=== PATIENT | female | born 1935 | race Caucasian/White ===

== ENCOUNTER 2016-12-23 17:12 | Emergency (ER) | payer OTHER ==
[2013-01-30 10:12] VITALS: BP 132/71; TEMP 97.6
[2016-12-23 17:20] VITALS: BP 143/78; TEMP 99.3; BMI 31.9
--- NOTE | 2016-12-23 17:51 | ED.PDOC ---
General ED Provider: Dr. JAZMIN PURVIS Chief Complaint: Wound Check Stated Complaint: LEFT FOOT GREAT TOE INJURY Time Seen by Physician: 17:29 (HISTORY NEUROPATHYX 13 YEARS CANT FEEL LOWER LEGS ) Mode of Arrival: Walk-In Information Source: Patient Exam Limitations: No limitations Primary Care Provider: SJ LANDIN Nursing and Triage Documentation Reviewed and Agree: Yes (POSSIBLE TRAUMA IN ED FOR WOUND CHECK) Musculoskeletal Complaint Exam - Ankle/Foot Complaint/Exam Location of Injury: Reports: Left, Foot, Toe #1 Mechanism of Injury: Reports: Trauma (IS POSSIBLE SEE PHOTOS) Onset/Duration: PT NOTICED IT WENDSDAY Symptoms Are: Reports: Still present (SEE PHOTOS) Onset of Pain: Reports: Hours Initial Severity: Mild Current Severity: Mild Location: Reports: Discrete (1ST TOE) Character: Reports: Aching Alleviating: Reports: None, Rest Aggravating: Reports: None Able to Bear Weight: Yes Associated Signs and Symptoms: Reports: Swelling, Redness, Bruising (LACERATION 1ST TOE) Gout Risk Factors: Reports: >40 years old Lower Extremity Findings: Present: Swelling, Ecchymosis Review of Systems - Review Of Systems Constitutional: Reports: No symptoms Eyes: Reports: No symptoms Ears, Nose, Mouth, Throat: Reports: No symptoms Respiratory: Reports: No symptoms Cardiac: Reports: No symptoms GI: Reports: No symptoms : Reports: No symptoms Musculoskeletal: Reports: Other (PAIN LEFT 1ST TOE) Skin: Reports: No symptoms Neurological: Reports: No symptoms Endocrine: Reports: No symptoms Hematologic/Lymphatic: Reports: No symptoms All Other Systems: Reviewed and Negative Past Medical History - Past Medical History Previously Healthy: No Endocrine: Reports: DM 2 Cardiovascular: Reports: Hypertension Respiratory: Reports: None Hematological: Reports: Unknown Gastrointestinal: Reports: GERD Genitourinary: Reports: None 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) Musculoskeletal: Reports: Arthritis Cancer: Reports: Unknown Last Menstrual Period: hysterectomy - Surgical History General Surgical History: Reports: Unknown - Family History Family History: Reports: Unknown - Social History Smoking Status: Never smoker Hx Substance Use: No Alcohol Screening: None Physical Exam - Physical Exam Appearance: Well-appearing, No pain distress, Well-nourished Eyes: THEE, EOMI, Conjunctiva clear ENT: Ears normal, Nose normal, Oropharynx normal Respiratory: Airway patent, Breath sounds clear, Breath sounds equal, Respirations nonlabored Cardiovascular: RRR, Pulses normal, No rub, No murmur GI/: Soft, Nontender, No masses, Bowel sounds normal, No Organomegaly Musculoskeletal: Normal strength, ROM intact, No edema, No calf tenderness Skin: Warm, Dry (SKIN TEAR AND BRUSING ON THE 1ST TOE LEFT FOOT) Neurological: Sensation intact, Motor intact, Reflexes intact, Cranial nerves intact, Alert, Oriented Psychiatric: Affect appropriate, Mood appropriate Critical Care Note - Critical Care Note Total Time (mins): 0 Course - Course Orders, Labs, Meds: Orders Category Date Time Status FOOT, LEFT 3 VIEWS Stat RADS 12/23/16 17:48 Ordered Vital Signs: Temp Pulse Resp BP Pulse Ox 12/23/16 17:14 99.3 F 103 H 20 143/78 H 94 L Departure - Departure Time of Disposition: 17:54 (WITH ELISEO AT BEDSIDE DID CHECK THE PULSES OF THE LOWER EXT MANUALY AND WITH KRISTINAPLER ALL PULSES WERE PRESENT STRONG . ELISEO PRESENT) Disposition: HOME SELF-CARE Discharge Problem: Wound Foot abrasion Qualifiers: Encounter type: initial encounter Laterality: left Qualifier Code: (S90.812A) Abrasion, left foot, initial encounter Contusion of toe, left Qualifiers: Encounter type: initial encounter Toe: great toe Damage to nail status: with damage Qualifier Code: (S90.212A) Contusion of left great toe with damage to nail, initial encounter Instructions: Laceration (ED) Condition: Good Pt referred to PMD for follow-up: No Additional Instructions: Please call your Family Physician as soon as possible to schedule a follow-up appointment. Allergies/Adverse Reactions: Allergies Penicillins Adverse Reaction (Verified 12/23/16 17:23) Home Medications: Ambulatory Orders Albuterol Sulfate [Proair Hfa] 4 puff INH QID 01/30/13 Budesonide [Rhinocort Aqua] 32 mcg NS DAILY PRN 01/30/13 Celecoxib [Celebrex] 100 mg PO DAILY 01/30/13 Duloxetine HCl [Cymbalta] 60 mg PO DAILY 01/30/13 Esomeprazole Magnesium [Nexium] 40 mg PO DAILY 01/30/13 Fexofenadine HCl [Marah] 180 mg PO DAILY 01/30/13 Glyburide [Diabeta] 2.5 mg PO 1-2XD 06/12/13 Montelukast Sodium [Singulair] 10 mg PO ONCE 01/30/13 Valsartan [Diovan] 320 mg PO DAILY 01/30/13 Cholecalciferol (Vitamin D3) [Vitamin D3] 1,000 unit PO DAILY 12/23/16 Glucosamine HCl/Chondr Segundo A Na [Osteo Bi-Flex Caplet] 1 each PO BID 12/23/16 Hydrocodone/Acetaminophen [Hydrocodon-Acetaminophen 5-325] 1 each PO Q6HR PRN Sitagliptin Phosphate [Januvia] 50 mg PO DAILY 12/23/16
--- NOTE | 2016-12-23 18:20 | DI ---
EXAM: Left foot, three views, 12/23/2016 HISTORY: Trauma COMPARISON: None. FINDINGS / IMPRESSION: The distal aspect of the second metatarsal is absent. Joint space narrowing at the interphalangeal joint of the great toe. Bony erosion within the base of the distal phalanx. A jagged lucency also traverses the proximal aspect of the distal phalanx of the great toe. This c ould represent acute fracture. Please correlate with physical examination. This is age indetermina te. 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 Joint space narro wing with bulky dorsal osteophyte formation. Multiple sites of articular sclerosis and endplate ero concha.
[2016-12-23] MEDS: LIDOCAINE 1 % AMP 5 ML (SUTURES) IM STA (18:39)
[2016-12-23] MEDS: ROCEPHIN IM STA (18:40)
== END 2016-12-23 19:01 | disposition home or self-care (01) ==
LOC: ED 17:12
DX: S92.402A Displaced unspecified fracture of left great toe, initial encounter for closed fracture (principal); S90.812A Abrasion, left foot, initial encounter
CPT/HCPCS: 96372; 99283

== ENCOUNTER 2016-12-24 15:14 | Outpatient (CLI) ==
[2016-12-23 17:20] VITALS: BMI 31.9
[2016-12-24 15:38] VITALS: BP 120/68; TEMP 98.6
[2016-12-24] MEDS ORDERED: LIDOCAINE 1 % AMP 5 ML (SUTURES) IM STA (15:39)
[2016-12-24] MEDS ORDERED: ROCEPHIN IM STA (15:39)
[2016-12-24] MEDS ORDERED: LIDOCAINE 1 % AMP 5 ML (SUTURES) ONE (15:44)
[2016-12-24] MEDS ORDERED: ROCEPHIN ONE (15:44)
[2016-12-24] MEDS: ROCEPHIN IM SCH (15:59)
[2016-12-25] MEDS ORDERED: LIDOCAINE 1 % AMP 5 ML (SUTURES) IM SCH (09:00)
== END 2016-12-24 15:15 | disposition home or self-care (01) ==
LOC: OPMED 15:14
PROVIDERS: ATTEND Internal Medicine Geriatric Medicine
DX: S92.402B Displaced unspecified fracture of left great toe, initial encounter for open fracture (principal); L03.032 Cellulitis of left toe
CPT/HCPCS: 96372

== ENCOUNTER 2016-12-25 14:50 | Outpatient (CLI) ==
[2016-12-25 15:13] VITALS: BP 132/68; TEMP 98.1
[2016-12-25] MEDS ORDERED: ROCEPHIN ONE (15:22)
[2016-12-25] MEDS ORDERED: LIDOCAINE 1 % AMP 5 ML (SUTURES) ONE (15:26)
[2016-12-25] MEDS: ROCEPHIN IM STA (15:39)
[2016-12-25] MEDS: LIDOCAINE 1 % AMP 5 ML (SUTURES) IM STA (15:40)
[2016-12-25] MEDS: URO-JET MUCOUSMEMB ONE (15:41)
== END 2016-12-25 14:51 | disposition home or self-care (01) ==
LOC: OPMED 14:50
PROVIDERS: ATTEND Internal Medicine Geriatric Medicine
DX: S92.402B Displaced unspecified fracture of left great toe, initial encounter for open fracture (principal); L03.032 Cellulitis of left toe
CPT/HCPCS: 96372

== ENCOUNTER 2018-03-31 13:16 | Outpatient (CLI) ==
[2013-01-30 10:12] VITALS: TEMP 97.6
== END 2018-03-31 13:45 | disposition short-term general hospital (02) ==
LOC: AMBL 13:16
PROVIDERS: ATTEND Internal Medicine
DX: R53.1 Weakness (principal); R50.9 Fever, unspecified; M79.672 Pain in left foot; S92.912D Unspecified fracture of left toe(s), subsequent encounter for fracture with routine healing; I10 Essential (primary) hypertension; E11.9 Type 2 diabetes mellitus without complications; G62.9 Polyneuropathy, unspecified